=== PATIENT | female | born 1950 | race Caucasian/White ===

== ENCOUNTER 2019-02-12 03:18 | Observation (INO) | payer BC, OTHER ==
--- NOTE | 2019-02-12 04:12 | PDOC ---
Attending Attestation - Resident Resident Name: Khanh Reid - ED Attending Attestation I have performed the following: I have examined & evaluated the patient, The case was reviewed & discussed with the resident, I agree w/resident's findings & plan - HPI HPI: 02/12/19 05:14 Pt woke with afib and palpitations to 150-170. She has never had this in the past. Pt ate a lot and drank al lot of alcohol yesterday from 2PM -9PM with family and friends. She has PMHx of HTN and she is on HCTZ, She has no other complaints. - Physicial Exam PE: 02/12/19 05:16 Heart irregularly irreg. Lungs clear Abd NT ND No flank pain No rash Neurologically intact Pt has no fever; no alcohol on breath. - Medical Decision Making 02/12/19 04:12 Pt with rapid afib; diltiazem and NSS 02/12/19 05:01 Rapid afib resolved in the ER; pt is now in afib but rate controlled. Pt just got an IV dose of 5mg and 1L saline hung. BP is 139/80 Pt has no chest pain 02/12/19 05:20 CBC and Hb/HCT normal 02/12/19 05:21 Her quantitative strategy analyst is Dr. Noble 02/12/19 05:43 Labs normal; alcohol level only 9 Pt has normal CXR 02/12/19 06:55 EKG #2: pt converted to sinus rhythm
[2019-02-12] MEDS ORDERED: dilTIAZem HCL 50 MG/10 ML - 10 ML VIAL IVPUSH ONE ×2 (04:28→04:59)
--- NOTE | 2019-02-12 04:38 | PDOC ---
History of Present Illness - General Chief Complaint: Irregular Heart Beat Stated Complaint: R/O AFIB Time Seen by Provider: 02/12/19 04:08 - History of Present Illness Initial Comments: 02/12/19 04:08 68 yo pmh RBBB (not treated), HTN, esophageal spasms presents to the ED for sudden onset chest palpations tonight. Pt admits to having approx 5 glassess of wine tonight (normally drinks 2). States woken up out of sleep with palpitations 170s HR. Has has had palp prior however in the past has resolved Pt denies hx of afib, not on anticoagulation, denies CP, SOB, abdominal pain, recent illness, recent travel, calf tenderness. Past History - Past Medical History Allergies/Adverse Reactions: Allergies Allergy/AdvReac Type Severity Reaction Status Date / Time No Known Allergies Allergy Verified 02/12/19 03:38 Home Medications: Ambulatory Orders Acetaminophen [Tylenol] 650 mg PO PRN 02/12/19 Celecoxib [Celebrex] 200 mg PO DAILY 02/12/19 Cholecalciferol (Vitamin D3) [Vitamin D3 -] 0 unit PO DAILY 02/12/19 Eszopiclone [Lunesta] 1 mg PO DAILY 02/12/19 Famotidine [Pepcid -] 40 mg PO DAILY 02/12/19 Hydrochlorothiazide 12.5 mg PO DAILY 02/12/19 Omeprazole 20 mg PO DAILY 02/12/19 Rosuvastatin Calcium [Crestor] 20 mg PO HS 02/12/19 Sucralfate [Carafate -] 1 gm PO DAILY 02/12/19 - Psycho Social/Smoking Cessation Hx Smoking History: Never smoked Have you smoked in the past 12 months: No Information on smoking cessation initiated: No Hx Alcohol Use: No Drug/Substance Use Hx: No Review of Systems - Review of Systems Constitutional: No: Chills, Fever HEENTM: No: Blurred Vision, Double Vision Respiratory: No: Shortness of Breath Cardiac (ROS): Yes: Irregular Heart Rate. No: Chest Pain, Edema ABD/GI: No: Constipated, Diarrhea, Nausea, Vomiting : No: Burning, Dysuria, Frequency, Flank Pain Musculoskeletal: No: Back Pain Integumentary: No: Change in Color Neurological: No: Headache, Numbness, Paresthesia, Weakness *Physical Exam - Vital Signs Last Vital Signs Temp Pulse Resp BP Pulse Ox 97.7 F 68 20 131/88 98 02/12/19 04:06 02/12/19 04:06 02/12/19 04:06 02/12/19 04:06 02/12/19 04:06 - Physical Exam General Appearance: Yes: Nourished, Appropriately Dressed. No: Apparent Distress HEENT: positive: EOMI Neck: positive: Supple. negative: Carotid bruit Respiratory/Chest: positive: Lungs Clear, Normal Breath Sounds. negative: Respiratory Distress, Accessory Muscle Use, Crackles, Rales, Rhonchi, Stridor, Wheezing Cardiovascular: positive: Irregularly Irregular. negative: Edema, JVD, Murmur Vascular Pulses: Dorsalis-Pedis (R): 4+, Doralis-Pedis (L): 4+ Gastrointestinal/Abdominal: positive: Flat, Soft. negative: Pulsatile Mass, Protuberent, Distended, Guarding, Rebound, Tenderness Musculoskeletal: negative: CVA Tenderness Extremity: positive: Normal Capillary Refill, Normal Inspection, Normal Range of Motion Integumentary: positive: Normal Color, Dry, Warm Neurologic: positive: bow maker II-XII NML intact, Fully Oriented, Alert, Normal Mood/ Affect, Normal Response, Motor Strength 07/19 ED Treatment Course - LABORATORY CBC & Chemistry Diagram: 02/12/19 04:30 02/12/19 04:30 Medical Decision Making - Medical Decision Making 02/12/19 04:42 68 yo pmh RBBB (not treated), HTN, esophageal spasms presents to the ED for sudden onset chest palpations tonight. Pt admits to having approx 5 glassess of wine tonight (normally drinks 2). States woken up out of sleep with palpitations 170s HR. Has has had palp prior however in the past has resolved Pt denies hx of afib, not on anticoagulation, denies CP, SOB, abdominal pain, recent illness, recent travel, calf tenderness. vitals show elevated HR in the 140s, irr irr, BP stable with systolic in the 130s EKG shows irr irr rhythm, pt in rapid a fib requires rate control. Will give .25 mg/kg of Dilt = 18.5 mg push 02/12/19 05:51 Prior to giving Dilt, pt rate reduced to the 80s, denies palpitations however on the monitor, appears to still be in afib. 5mg dilt given and 1L fluids Repeat ekg done, NSR RBBB, no signs of acute ischemia labs neg for trop CXR ED read no acute findings Will admit pt for new onset afib 02/12/19 06:04 pending admission 02/12/19 07:29 Pt accepted for admission Discharge - Discharge Information Problems reviewed: Yes Clinical Impression/Diagnosis: Atrial fibrillation with RVR - Admission Yes - Follow up/Referral - Patient Discharge Instructions - Post Discharge Activity
[2019-02-12 04:59] LABS: BASO % 0.9 % (0-2.0); EOS % 4.3 % (0-4.5); HEMATOCRIT 39.4 % (32.4-45.2); HEMOGLOBIN 13.5 GM/dL (10.7-15.3); LYMPH % 38.9 % (8-40); MCH 32.3 pg (25.7-33.7); MCHC 34.3 g/dl (32.0-36.0); MEAN PLT VOLUME 8.5 fl (7.5-11.1); MONO % 9.8 % (3.8-10.2); NEUT % 46.1 % (42.8-82.8); PLATELET COUNT 227 K/MM3 (134-434); RBC 4.19 M/mm3 (3.60-5.2); RDW 12.6 % (11.6-15.6); WHITE BLOOD COUNT 6.3 K/mm3 (4.0-10.0)
[2019-02-12] MEDS ORDERED: SODIUM CHLORIDE 1,000 ML IV STA (05:00)
[2019-02-12 05:11] LABS: INR 0.92 (0.83-1.09); PROTHROMBIN TIME (PATIENT) 10.9 SEC (9.7-13.0)
[2019-02-12 05:13] LABS: ACTIVATED PTT 30.9 SECONDS (25.2-36.5)
[2019-02-12 05:21] LABS: ALBUMIN 3.6 g/dl (3.4-5.0); BILIRUBIN,TOTAL 0.2 mg/dL (0.2-1); BLOOD UREA NITROGEN 15.2 mg/dL (7-18); CREATININE 0.8 mg/dL (0.55-1.3); MAGNESIUM 1.7 mg/dL (1.8-2.4); POTASSIUM 4.3 mmol/L (3.5-5.1); TOT PROT 6.7 g/dl (6.4-8.2)
--- NOTE | 2019-02-12 08:17 | HP ---
CHIEF COMPLAINT: Palpitations PCP: Dr Hyde HISTORY OF PRESENT ILLNESS: Pt is a 68 y/o F with a significant past medical history of HTN who presented to [facility] due to palpitations. Pt endorses she woke from sleep around 1:50 am early this morning and felt her heart racing. Pt has an alex on her phone which records heart rate and rhythm. Alex stated her rate was 177 and that she may be in atrial fibrillation. Pt presented to our Emergency Department where an EKG was performed which revealed Atrial Fibrillation wit Rapid Ventricular Response (Rate 136). Pt states she consumed 5 glasses of wine during thanksgi which is a lot for her. Pt denies ever having atrial fibrillation in the past. Denies any cardiac history. Denies headache, shortness of breath, chest pain, nausea/ vomiting, lightheadedness, or LOC. PMH -HTN SocialHx-Denies tobacco use. Social Drinker. Denies illicit drug use. SurgHx -Bladder Mesh, hand and foot orthopedic surgeries NKDA FamHx- Father a-fib, HLD. Mother Alzheimer's ER course was notable for: (1) 5 mg Diltiazem (2) (3) Allergies No Known Allergies Allergy (Verified 02/12/19 03:38) HOME MEDICATIONS: Home Medications Medication Instructions Recorded Acetaminophen [Tylenol] 650 mg PO PRN 02/12/19 Celecoxib [Celebrex] 200 mg PO DAILY 02/12/19 Cholecalciferol (Vitamin D3) 0 unit PO DAILY 02/12/19 [Vitamin D3 -] Eszopiclone [Lunesta] 1 mg PO DAILY 02/12/19 Famotidine [Pepcid -] 40 mg PO DAILY 02/12/19 Hydrochlorothiazide 12.5 mg PO DAILY 02/12/19 Omeprazole 20 mg PO DAILY 02/12/19 Rosuvastatin Calcium [Crestor] 20 mg PO HS 02/12/19 Sucralfate [Carafate -] 1 gm PO DAILY 02/12/19 REVIEW OF SYSTEMS CONSTITUTIONAL: Absent: fever, chills, diaphoresis, generalized weakness, malaise, loss of appetite, weight change HEENT: Absent: rhinorrhea, nasal congestion, throat pain, throat swelling, difficulty swallowing, mouth swelling, ear pain, eye pain, visual changes CARDIOVASCULAR: PRESENT palpitations, irregular heart rate RESPIRATORY: Absent: cough, shortness of breath, dyspnea with exertion, orthopnea, wheezing, stridor, hemoptysis GASTROINTESTINAL: Absent: abdominal pain, abdominal distension, nausea, vomiting, diarrhea, constipation, melena, hematochezia GENITOURINARY: Absent: dysuria, frequency, urgency, hesitancy, hematuria, flank pain, genital pain MUSCULOSKELETAL: Absent: myalgia, arthralgia, joint swelling, back pain, neck pain SKIN: Absent: rash, itching, pallor HEMATOLOGIC/IMMUNOLOGIC: Absent: easy bleeding, easy bruising, lymphadenopathy, frequent infections ENDOCRINE: Absent: unexplained weight gain, unexplained weight loss, heat intolerance, cold intolerance NEUROLOGIC: Absent: headache, focal weakness or paresthesias, dizziness, unsteady gait, seizure, mental status changes, bladder or bowel incontinence PSYCHIATRIC: Absent: anxiety, depression, suicidal or homicidal ideation, hallucinations. PHYSICAL EXAMINATION Vital Signs - 24 hr 02/12/19 02/12/19 03:35 04:06 Temperature 97.9 F 97.7 F Pulse Rate 68 Pulse Rate [ 93 H Right Radial] Respiratory 17 20 Rate Blood Pressure 131/88 Blood Pressure 131/92 [Left Arm] O2 Sat by Pulse 99 98 Oximetry (%) GENERAL: NAD, pleasant HEAD: Normal with no signs of trauma. EYES: EOMI Sclera clear EARS, NOSE, THROAT: MMM NECK: Supple LUNGS: CTA b/l HEART: RRR S1S2 ABDOMEN: Soft NDNT MUSCULOSKELETAL: FROM throughout LOWER EXTREMITIES: No Significant edema NEUROLOGICAL: Cranial nerves II-XII intact. Normal speech. PSYCHIATRIC: Cooperative. Good eye contact. Appropriate mood and affect. SKIN: Warm, no rashes or lesions appreciated Laboratory Results - last 24 hr 02/12/19 02/12/19 02/12/19 04:30 04:30 04:30 WBC 6.3 RBC 4.19 Hgb 13.5 Hct 39.4 MCV 94.0 MCH 32.3 MCHC 34.3 RDW 12.6 Plt Count 227 MPV 8.5 Absolute Neuts (auto) 2.9 Neutrophils % 46.1 Lymphocytes % 38.9 Monocytes % 9.8 Eosinophils % 4.3 Basophils % 0.9 Nucleated RBC % 0 PT with INR 10.90 INR 0.92 PTT (Actin FS) 30.9 Sodium Potassium Chloride Carbon Dioxide Anion Gap BUN Creatinine Est GFR (CKD-EPI)AfAm Est GFR (CKD-EPI)NonAf Random Glucose Calcium Magnesium Total Bilirubin AST ALT Alkaline Phosphatase Creatine Kinase 83 Troponin I < 0.02 Total Protein Albumin Alcohol, Quantitative 02/12/19 04:30 WBC RBC Hgb Hct MCV MCH MCHC RDW Plt Count MPV Absolute Neuts (auto) Neutrophils % Lymphocytes % Monocytes % Eosinophils % Basophils % Nucleated RBC % PT with INR INR PTT (Actin FS) Sodium 140 Potassium 4.3 Chloride 107 Carbon Dioxide 26 Anion Gap 7 L BUN 15.2 Creatinine 0.8 Est GFR (CKD-EPI)AfAm 88.42 Est GFR (CKD-EPI)NonAf 76.29 Random Glucose 94 Calcium 9.0 Magnesium 1.7 L Total Bilirubin 0.2 AST 52 H ALT 35 Alkaline Phosphatase 102 Creatine Kinase Troponin I Total Protein 6.7 Albumin 3.6 Alcohol, Quantitative 9.2 H ASSESSMENT/PLAN: Pt is a 68 y/o F with a significant past medical history of HTN who presented to [facility] due to palpitations. #Atrial Fibrillation with Rapid Ventricular Response-1st episode - HR 177 with Atrial fibrillaton at home. EKG at [facility]---> A-Fib w/ RVR rate 136 incomplete RBBB. QTc 436. -HR came down to 80s prior to administration of Diltiazem 5 mg however drug was given anyway as pt still was in A-Fib on monitor. -Cardiology Consult -Echocardiogram to assess for any valvular pathology or wall motion abnormality -Tele monitoring -TSH WNL #HTN -resume home medications #FEN No standing fluids Monitor Electrolytes Sodium Controlled Diet #DVT ppx: Lovenox 1mg/kg #Dispo: Tele-obs Visit type - Emergency Visit Emergency Visit: Yes ED Registration Date: 02/12/19 Care time: The patient presented to the Emergency Department on the above date and was hospitalized for further evaluation of their emergent condition. - New Patient This patient is new to me today: Yes Date on this admission: 02/12/19 - Critical Care Critical Care patient: No ATTENDING PHYSICIAN STATEMENT I saw and evaluated the patient. I reviewed the resident's note and discussed the case with the resident. I agree with the resident's findings and plan as documented. SUBJECTIVE: OBJECTIVE: ASSESSMENT AND PLAN:
[2019-02-12] MEDS ORDERED: ENOXAPARIN NA (PORCINE) 80 MG/0.8 ML DISP.SYRIN SQ ONE ×2 (08:45→08:57)
--- NOTE | 2019-02-12 09:08 | CON.CARD ---
Consult Consult Specialty:: Cardiology Referred by:: Dr. Tsai Reason for Consultation:: New onset AF - History of Present Illness Chief Complaint: Palpitations History of Present Illness: 68F with OA, HLD awoke with palpitations and FitBit showing possible AF. Came to ER and EKG confirmed AF w/ RVR, now back in NSR after Dilt. Denies SOB, did have chest tightness associated with the AF, now resolved. Denies exertional CP, SOB, palps. Admits to "overindulging" yesterday (Thanksgiving) including more ETOH than usual. - History Source History Provided By: Patient Limitations to Obtaining History: No Limitations - Past Medical History 3D SPECIALIST: No: Alzheimer's, CVA, Dementia, Migraine, Multiple Sclerosis, Peripheral Neuropathy, Parkinson's, Seizure, Syncope, TIA, Vertigo, Other Cardio/Vascular: Yes: HTN Pulmonary: No: Asthma, Bronchitis, Cancer, COPD, O2 Dependent, Pneumonia, Previously Intubated, Pulmonary Embolus, Pulmonary Fibrosis, Sleep Apnea, Other Gastrointestinal: Yes: GERD Hepatobiliary: No: Cirrhosis, Cholelithiasis, Cholecystitis, Choledocholithiasis , Hepatitis A, Hepatitis B, Hepatitis C, Other Renal/: No: Renal Failure, Renal Inusuff, BPH, Cancer, Hematuria, Hemodialysis , Neurogenic Bladder, Renal Calculi, UTI, Other Heme/Onc: No: Anemia, B12 Deficiency, Bleeding Disorder, Cancer, Current Chemotherapy, Current Radiation Therapy, Hemochromatosis, Hypercoaguable State, Myeloproliferative Synd, Sickle Cell Disease, Sickle Cell Trait, Thrombocytopenia, Other Infectious Disease: No: AIDS, C-Diff, Herpes Zoster, HIV, MRSA, STD's, Tuberculosis, VREF, Other Psych: No: Addictions, Anxiety, Bipolar, Depression, Panic, Psychosis, Schizophrenia, Other Musculoskeletal: No: Bursitis, Chronic low back pain, Hemiparesis, Hemiplegia, Osteoarthritis, Paraplegia, Other - Past Surgical History Additional Surgical History: multiple ortho surgeries - Alcohol/Substance Use Hx Alcohol Use: No - Smoking History Smoking history: Never smoked Have you smoked in the past 12 months: No - Social History Occupation: Does [employer] History of Recent Travel: No Home Medications - Allergies Allergies/Adverse Reactions: Allergies Allergy/AdvReac Type Severity Reaction Status Date / Time No Known Allergies Allergy Verified 02/12/19 03:38 - Home Medications Home Medications: Ambulatory Orders Acetaminophen [Tylenol] 650 mg PO PRN 02/12/19 Celecoxib [Celebrex] 200 mg PO DAILY 02/12/19 Cholecalciferol (Vitamin D3) [Vitamin D3 -] 0 unit PO DAILY 02/12/19 Eszopiclone [Lunesta] 1 mg PO DAILY 02/12/19 Famotidine [Pepcid -] 40 mg PO DAILY 02/12/19 Hydrochlorothiazide 12.5 mg PO DAILY 02/12/19 Omeprazole 20 mg PO DAILY 02/12/19 Rosuvastatin Calcium [Crestor] 20 mg PO HS 02/12/19 Sucralfate [Carafate -] 1 gm PO DAILY 02/12/19 Family Medical History Family History: Unremarkable (brother does have AF) Review of Systems Findings/Remarks: see HPI - Review of Systems Constitutional: reports: No Symptoms Eyes: reports: No Symptoms HENT: reports: No Symptoms Neck: reports: No Symptoms Cardiovascular: reports: Palpitations Respiratory: reports: No Symptoms Gastrointestinal: reports: No Symptoms Genitourinary: reports: No Symptoms Breasts: reports: No Symptoms Reported Musculoskeletal: reports: No Symptoms Integumentary: reports: No Symptoms Neurological: reports: No Symptoms Endocrine: reports: No Symptoms Psychiatric: reports: No Symptoms - Risk Factors Known Risk Factors: Yes: Hypercholesterolemia, Hypertension Vital Signs: Vital Signs Temperature 98.0 F 02/12/19 08:26 Pulse Rate 87 02/12/19 08:26 Respiratory Rate 19 02/12/19 08:26 Blood Pressure 140/90 02/12/19 08:26 O2 Sat by Pulse Oximetry (%) 99 02/12/19 08:42 Constitutional: Yes: No Distress, Calm Eyes: Yes: Conjunctiva Clear Respiratory: Yes: CTA Bilaterally Gastrointestinal: Yes: Soft JVD: No Carotid Bruit: No PMI: Non-Displaced Heart Sounds: Yes: S1, S2 (rrr, no m/r/g) Edema: No Peripheral Pulses WNL: Yes - Other Data Labs, Other Data: CBC, BMP 02/12/19 04:30 02/12/19 04:30 INR, PTT INR 0.92 (0.83-1.09) 02/12/19 04:30 Troponin, BNP 02/12/19 04:30 Troponin I < 0.02 Troponin, BNP 02/12/19 04:30 Troponin I < 0.02 Echo: Pending Imaging - Results EKG: Image Reviewed (AF 136bpm, RBBB) Assessment/Plan IMP: AF w/ RVR, new onset now in NSR ([id number] score at least 2) (TSH WNL) HTN HLD REC: 1. Start Toprol XL 25mg daily 2. Eliquis 5mg PO BID 3. Echo 4. 2nd set cardiac enzymes. 5. If echo benign and remains NSR , ok d/c home tomorrow AM w/ close outpt f/u Dr. Noble. If this was an isolated episode, then long-term AC can be revisited in future after serial outpatient monitoring.
[2019-02-12] MEDS: metoPROLOL SUCCINATE 25 MG TAB.SR.24H (FP) PO SCH (11:41)
[2019-02-12] MEDS ORDERED: MAGNESIUM SULF 50% (8.12 MEQ/2 ML-1 GM VIAL) IVPB ONE (12:25)
--- NOTE | 2019-02-12 12:25 | PN ---
Teaching Attending Note Name of Resident: Fan Vann ATTENDING PHYSICIAN STATEMENT I saw and evaluated the patient. I reviewed the resident's note and discussed the case with the resident. I agree with the resident's findings and plan as documented. SUBJECTIVE: No further palpitations. No chest pain/shortness of breath/cough/ sputum/hemoptysis. OBJECTIVE: Afebrile, Hemodynamically Stable. Last Vital Signs Temp Pulse Resp BP Pulse Ox 98.0 F 87 19 140/90 99 02/12/19 08:26 02/12/19 08:26 02/12/19 08:26 02/12/19 08:26 02/12/19 08:42 HEENT - Atraumatic, Normocephalic. Heart - S1, S2, RRR. Lungs - clear to auscultation. Abdomen - soft, non-tender. Bo[place]el Sounds normal. Extremities - No edema, no calf tenderness. Neuro - AAO x 3. Tone/Power normal all 4 extremities. Laboratory Results - last 24 hr 02/12/19 02/12/19 02/12/19 04:30 04:30 04:30 WBC 6.3 RBC 4.19 Hgb 13.5 Hct 39.4 MCV 94.0 MCH 32.3 MCHC 34.3 RDW 12.6 Plt Count 227 MPV 8.5 Absolute Neuts (auto) 2.9 Neutrophils % 46.1 Lymphocytes % 38.9 Monocytes % 9.8 Eosinophils % 4.3 Basophils % 0.9 Nucleated RBC % 0 PT with INR 10.90 INR 0.92 PTT (Actin FS) 30.9 Sodium Potassium Chloride Carbon Dioxide Anion Gap BUN Creatinine Est GFR (CKD-EPI)AfAm Est GFR (CKD-EPI)NonAf Random Glucose Calcium Magnesium Total Bilirubin AST ALT Alkaline Phosphatase Creatine Kinase 83 Troponin I < 0.02 Total Protein Albumin TSH Alcohol, Quantitative 02/12/19 02/12/19 04:30 07:37 WBC RBC Hgb Hct MCV MCH MCHC RDW Plt Count MPV Absolute Neuts (auto) Neutrophils % Lymphocytes % Monocytes % Eosinophils % Basophils % Nucleated RBC % PT with INR INR PTT (Actin FS) Sodium 140 Potassium 4.3 Chloride 107 Carbon Dioxide 26 Anion Gap 7 L BUN 15.2 Creatinine 0.8 Est GFR (CKD-EPI)AfAm 88.42 Est GFR (CKD-EPI)NonAf 76.29 Random Glucose 94 Calcium 9.0 Magnesium 1.7 L Total Bilirubin 0.2 AST 52 H ALT 35 Alkaline Phosphatase 102 Creatine Kinase Troponin I Total Protein 6.7 Albumin 3.6 TSH 2.41 Alcohol, Quantitative 9.2 H Current Medications Generic Name Dose Route Start Last Admin Trade Name Lavellq PRN Reason Stop Dose Admin Apixaban 5 mg 02/12/19 22:00 Eliquis - PO BID [facility] Metoprolol Succinate 25 mg 02/12/19 10:00 02/12/19 11:41 Toprol Xl - PO 25 mg DAILY [facility] Administration Home Medications Medication Instructions Recorded Acetaminophen [Tylenol] 650 mg PO PRN 02/12/19 Celecoxib [Celebrex] 200 mg PO DAILY 02/12/19 Cholecalciferol (Vitamin D3) 0 unit PO DAILY 02/12/19 [Vitamin D3 -] Eszopiclone [Lunesta] 1 mg PO DAILY 02/12/19 Famotidine [Pepcid -] 40 mg PO DAILY 02/12/19 Hydrochlorothiazide 12.5 mg PO DAILY 02/12/19 Omeprazole 20 mg PO DAILY 02/12/19 Rosuvastatin Calcium [Crestor] 20 mg PO HS 02/12/19 Sucralfate [Carafate -] 1 gm PO DAILY 02/12/19 ASSESSMENT AND PLAN: 68 year old female with HTN, HLD, presents with palpitations and abnormal HR/ Rhythm on fitbit. She reported palpitations and some associated chest tightness. ECG in ED confirmed Atrial Fibrillation, HR in 130s. 1. New onset Atrial Fibrillation Reverted to SR s/p Diltiazem. Evaluated by Cardiology and started on Toprol XL, Eliquis. Echo pending. Trend Troponins x 2. TSH wnl. Telemonitoring overnight. 2. HTN - Continue HCTZ. 3. HLD - resume Crestor. 4, GERD - Continue H2 jessica and Sucralfate. DVT Px - on Eliquis
[2019-02-12] MEDS ORDERED: MAGNESIUM SULF 50% (8.12 MEQ/2 ML-1 GM VIAL) ONE (12:33)
--- NOTE | 2019-02-12 13:33 | ECHO ---
Name: GRUPO ALEJO Exam:Adult Echocardiogram Study Date: 02/12/2019 10:40 AM Age: 68 yrs Height: 64 in Weight: 165 lb BSA: 1.8 m2 MMode/2D Measurements & Calculations IVSd: 0.95 cm Ao root diam: 3.3 cm LVIDd: 4.8 cm LA dimension: 3.9 cm LVIDs: 2.8 cm ACS: 1.9 cm LVPWd: 0.97 cm IVSs: 1.2 cm LVPWs: 1.3 cm EDV(Teich): 105.2 ml ESV(Teich): 28.4 ml Doppler Measurements & Calculations MV E max eric: 65.8 cm/sec Ao V2 max: 128.1 cm/sec MV A max eric: 77.2 cm/sec Ao max P.6 mmHg MV E/A: 0.85 Ao V2 mean: 83.6 cm/sec Ao mean P.2 mmHg Ao V2 VTI: 26.8 cm AI P1/2t: 382.0 msec AI max eric: 430.0 cm/sec TR max eric: 232.7 cm/sec AI max P.0 mmHg TR max P.7 mmHg RVSP(TR): 31.7 mmHg AI dec slope: 329.7 cm/sec2 PI end-d eric: 85.5 cm/sec Med Peak E' Eric: 6.5 cm/sec Med E/e': 10.1 Lat Peak E' Eric: 11.0 cm/sec Lat E/e': 6.0 RAP systole: 10.0 mmHg Left Ventricle Left ventricular systolic function is normal. Ejection Fraction = 60-65%. The transmitral spectral Do ppler flow pattern is suggestive of impaired LV relaxation. The left ventricular wall motion is normal. Right Ventricle The right ventricle is normal in size and function. Atria The left atrium is mildly dilated. Right atrial size is normal. Mitral Valve The mitral valve is normal in structure and function. There is no mitral valve stenosis. There is tra ce to mild mitral regurgitation. Tricuspid Valve The tricuspid valve is normal in structure and function. There is mild tricuspid regurgitation. Right ventricular systolic pressure is normal. Aortic Valve The aortic valve is trileaflet. No hemodynamically significant valvular aortic stenosis. Mild aortic regurgitation. Pulmonic Valve The pulmonic valve is not well seen, but is grossly normal. There is no pulmonic valvular stenosis. T race pulmonic valvular regurgitation. Great Vessels The aortic root is normal size. Pericardium/Pleura There is no pericardial effusion. Interpretation Summary Left ventricular systolic function is normal. Ejection Fraction = 60-65%. The transmitral spectral Doppler flow pattern is suggestive of impaired LV relaxation. The right ventricle is normal in size and function. The left atrium is mildly dilated. There is trace to mild mitral regurgitation. There is mild tricuspid regurgitation. Right ventricular systolic pressure is normal. Mild aortic regurgitation. The aortic root is normal size. There is no pericardial effusion. MD Chase *David 02/12/2019 01:33 PM
--- NOTE | 2019-02-12 14:12 | EKG ---
Test Reason : Blood Pressure : / mmHG Vent. Rate : 136 BPM Atrial Rate : 120 BPM P-R Int : 000 ms QRS Dur : 104 ms QT Int : 312 ms P-R-T Axes : 000 -04 -23 degrees QTc Int : 469 ms ATRIAL FIBRILLATION WITH RAPID VENTRICULAR RESPONSE WITH PREMATURE VENTRICULAR OR ABERRANTLY CONDUCTED COMPLEXES INCOMPLETE RIGHT BUNDLE BRANCH BLOCK NONSPECIFIC T WAVE ABNORMALITY ABNORMAL ECG WHEN COMPARED WITH ECG OF 13-NOV-2009 13:09, ATRIAL FIBRILLATION HAS REPLACED SINUS RHYTHM VENT. RATE HAS INCREASED BY 62 BPM Confirmed by JUAN DIEGO SHELTON MD ([id number]) on 02/12/2019 2:12:04 PM Referred By: Confirmed By:JUAN DIEGO SHELTON MD
[2019-02-12] MEDS ORDERED: ACETAMINOPHEN 325 MG TABLET (FP) PO PRN (20:01)
[2019-02-12] MEDS: APIXABAN 5 MG TABLET PO SCH (21:54)
[2019-02-12] MEDS ORDERED: ZOLPIDEM TARTRATE 5 MG TABLET PO PRN ×2 (22:00)
[2019-02-12 22:44] VITALS: BMI 28.9
[2019-02-13 07:59] LABS: BASO % 0.8 % (0-2.0); EOS % 4.4 % (0-4.5); HEMATOCRIT 36.4 % (32.4-45.2); HEMOGLOBIN 12.5 GM/dL (10.7-15.3); LYMPH % 46.3 % (8-40); MCH 32.2 pg (25.7-33.7); MCHC 34.3 g/dl (32.0-36.0); MEAN CELL VOLUME 93.8 fl (80-96); MEAN PLT VOLUME 8.4 fl (7.5-11.1); MONO % 10.7 % (3.8-10.2); NEUT % 37.8 % (42.8-82.8); PLATELET COUNT 203 K/MM3 (134-434); RBC 3.88 M/mm3 (3.60-5.2); RDW 12.7 % (11.6-15.6); WHITE BLOOD COUNT 4.8 K/mm3 (4.0-10.0)
[2019-02-13 08:03] LABS: INR 1.12 (0.83-1.09); PROTHROMBIN TIME (PATIENT) 13.2 SEC (9.7-13.0)
[2019-02-13 08:06] LABS: ACTIVATED PTT 35.2 SECONDS (25.2-36.5); ALBUMIN 3.1 g/dl (3.4-5.0); BILIRUBIN,TOTAL 0.5 mg/dL (0.2-1); BLOOD UREA NITROGEN 12.3 mg/dL (7-18); CREATININE 0.7 mg/dL (0.55-1.3); MAGNESIUM 2.1 mg/dL (1.8-2.4); PHOSPHOROUS 3.8 mg/dL (2.5-4.9); POTASSIUM 4.3 mmol/L (3.5-5.1); TOT PROT 5.6 g/dl (6.4-8.2)
--- NOTE | 2019-02-13 08:14 | PN ---
Progress Note, Physician Chief Complaint: palps History of Present Illness: no more palps no cp, sob, dizzy - Current Medication List Current Medications: Active Medications Acetaminophen (Tylenol -) 650 mg PO Q6H PRN PRN Reason: HEADACHE Apixaban (Eliquis -) 5 mg PO BID [facility] Last Admin: 02/12/19 21:54 Dose: 5 mg Metoprolol Succinate (Toprol Xl -) 25 mg PO DAILY [facility] Last Admin: 02/12/19 11:41 Dose: 25 mg Zolpidem Tartrate (Ambien -) 5 mg PO HS PRN PRN Reason: INSOMNIA Stop: 02/13/19 21:59 Last Admin: 02/12/19 21:54 Dose: 5 mg - Objective Vital Signs: Vital Signs Temperature 99 F 02/13/19 06:00 Pulse Rate 68 02/13/19 06:00 Respiratory Rate 18 02/13/19 06:00 Blood Pressure 140/78 02/13/19 06:00 O2 Sat by Pulse Oximetry (%) 99 02/12/19 23:41 Constitutional: Yes: Well Nourished, No Distress, Calm Cardiovascular: Yes: Pulse Irregular, S1, S2. No: Gallop, Murmur Respiratory: Yes: Regular, CTA Bilaterally. No: Accessory Muscle Use, Rales, Wheezes Extremities: No: Cold Edema: No Neurological: Yes: Alert, Oriented Psychiatric: No: Agitated Labs: CBC, BMP 02/13/19 05:58 02/13/19 05:58 INR, PTT INR 1.12 (0.83-1.09) H 02/13/19 05:58 Assessment/Plan Echo 02/02: nl LVEF, nl RV, mild LAE, mild AI, no pHTN tele: NSR, artifact IMP: AF w/ RVR, new onset--converted to NSR ([id number] = 3). ? mental stress induced (coordinating 's recent intensive outpt w/u for anemia and new colon Ca diagnosis), ? etoh induced HTN HLD REC: 1. incr metoprolol 25 bid 2. Eliquis 5mg PO BID 3. Echo benign. trop neg x 2. no s/sx of myocardial ischemia--no further w/u indicated 4. cont home HCTZ, bp stable here routine outpt f/u with me planned--OK FOR DC FROM CV POINT OF VIEW
[2019-02-13] MEDS: APIXABAN 5 MG TABLET PO SCH (09:37)
[2019-02-13] MEDS: metoPROLOL SUCCINATE 25 MG TAB.SR.24H (FP) PO SCH (09:37)
[2019-02-13 10:17] VITALS: BP 122/73; PULSE 83; TEMP 98.5
--- NOTE | 2019-02-13 12:06 | DS ---
Physical Exam: SUBJECTIVE: No further palpitations. No chest pain/shortness of breath/cough/ sputum/hemoptysis. OBJECTIVE: Afebrile, Hemodynamically Stable. Last Vital Signs Temp Pulse Resp BP Pulse Ox 98.5 F 83 18 122/73 99 02/13/19 10:00 02/13/19 10:00 02/13/19 10:00 02/13/19 10:00 02/12/19 23:41 HEENT - Atraumatic, Normocephalic. Heart - S1, S2, RRR. Lungs - clear to auscultation. Abdomen - soft, non-tender. [place] Sounds normal. Extremities - No edema, no calf tenderness. Neuro - AAO x 3. Tone/Power normal all 4 extremities. Laboratory Tests 02/12/19 02/12/19 02/12/19 04:30 04:30 04:30 WBC 6.3 RBC 4.19 Hgb 13.5 Hct 39.4 MCV 94.0 MCH 32.3 MCHC 34.3 RDW 12.6 Plt Count 227 MPV 8.5 Absolute Neuts (auto) 2.9 Neutrophils % 46.1 Lymphocytes % 38.9 Monocytes % 9.8 Eosinophils % 4.3 Basophils % 0.9 Nucleated RBC % 0 PT with INR 10.90 INR 0.92 PTT (Actin FS) 30.9 Sodium Potassium Chloride Carbon Dioxide Anion Gap BUN Creatinine Est GFR (CKD-EPI)AfAm Est GFR (CKD-EPI)NonAf Random Glucose Calcium Phosphorus Magnesium Total Bilirubin AST ALT Alkaline Phosphatase Creatine Kinase 83 Troponin I < 0.02 Total Protein Albumin TSH Alcohol, Quantitative 02/12/19 02/12/19 02/12/19 04:30 07:37 12:44 WBC RBC Hgb Hct MCV MCH MCHC RDW Plt Count MPV Absolute Neuts (auto) Neutrophils % Lymphocytes % Monocytes % Eosinophils % Basophils % Nucleated RBC % PT with INR INR PTT (Actin FS) Sodium 140 Potassium 4.3 Chloride 107 Carbon Dioxide 26 Anion Gap 7 L BUN 15.2 Creatinine 0.8 Est GFR (CKD-EPI)AfAm 88.42 Est GFR (CKD-EPI)NonAf 76.29 Random Glucose 94 Calcium 9.0 Phosphorus Magnesium 1.7 L Total Bilirubin 0.2 AST 52 H ALT 35 Alkaline Phosphatase 102 Creatine Kinase Troponin I < 0.02 Total Protein 6.7 Albumin 3.6 TSH 2.41 Alcohol, Quantitative 9.2 H 02/13/19 02/13/19 02/13/19 05:58 05:58 05:58 WBC 4.8 RBC 3.88 Hgb 12.5 Hct 36.4 MCV 93.8 MCH 32.2 MCHC 34.3 RDW 12.7 Plt Count 203 MPV 8.4 Absolute Neuts (auto) 1.8 Neutrophils % 37.8 L Lymphocytes % 46.3 H Monocytes % 10.7 H Eosinophils % 4.4 Basophils % 0.8 Nucleated RBC % 0 PT with INR 13.20 H INR 1.12 H PTT (Actin FS) 35.2 Sodium 142 Potassium 4.3 Chloride 108 H Carbon Dioxide 28 Anion Gap 6 L BUN 12.3 Creatinine 0.7 Est GFR (CKD-EPI)AfAm 103.91 Est GFR (CKD-EPI)NonAf 89.65 Random Glucose 89 Calcium 9.0 Phosphorus 3.8 Magnesium 2.1 Total Bilirubin 0.5 AST 26 ALT 27 Alkaline Phosphatase 78 Creatine Kinase Troponin I Total Protein 5.6 L Albumin 3.1 L TSH Alcohol, Quantitative Discharge Medications Medication Instructions Recorded Acetaminophen [Tylenol] 650 mg PO PRN 02/12/19 Celecoxib [Celebrex] 200 mg PO DAILY 02/12/19 Cholecalciferol (Vitamin D3) 0 unit PO DAILY 02/12/19 [Vitamin D -] Eszopiclone [Lunesta] 1 mg PO DAILY 02/12/19 Famotidine [Pepcid -] 40 mg PO DAILY 02/12/19 Hydrochlorothiazide 12.5 mg PO DAILY 02/12/19 Omeprazole 20 mg PO DAILY 02/12/19 Rosuvastatin Calcium [Crestor] 20 mg PO HS 02/12/19 Sucralfate [Carafate -] 1 gm PO DAILY 02/12/19 Apixaban [Eliquis -] 5 mg PO BID 30 Days #60 tablet 02/13/19 Metoprolol Succinate [Toprol XL -] 25 mg PO BID 30 Days #60 tab.sr.24h 02/13/19 Date of Admission:02/12/19 Date of Discharge: 02/13/19 Minutes to complete discharge: 35 Discharge Summary Problems reviewed: Yes Reason For Visit: ATRIAL FIBRILLATION WITH RAPID VENTRICULAR RESPONS Current Active Problems Atrial fibrillation with RVR (Acute) Hospital Course: 68 year old female with HTN, HLD, presents with palpitations and abnormal HR/ Rhythm on fitbit. She reported palpitations and some associated chest tightness. ECG in ED confirmed Atrial Fibrillation, HR in 130s. She reverted to SR after being given IV cardizem in ED and has remained in sinus. Echo showed impaired LV relaxation with EF 60%. She was seen by Cardioloy and started on Toprol XL and Eliquis for anticoagulation. She will follow with Dr. Noble as an out-patient. 1. New onset Atrial Fibrillation Reverted to SR s/p Diltiazem. Evaluated by Cardiology and started on Toprol XL, Eliquis. Echo normal EF, 60%, impaired LV relaxation. Troponins x 2 negative. TSH wnl. Telemonitoring overnight - no events. Medically cleared for discharge home by Cardiology 2. HTN - Continue HCTZ. 3. HLD - resume Crestor. 4, GERD - Continue H2 jessica and Sucralfate. Medically optimized for discharge Condition: Good - Instructions Diet, Activity, Other Instructions: You were admitted with an irregular heart rhythm, ATRIAL FIBRILLATION, now resolved. You were seen by Cardiology and started on two new medications - Metopolol and Eliquis. You had an Echocardiogram performed which showed normal LV ejection fraction with impaired relaxation. You were observed for 24 hours on telemetry with no adverse events. You will continue to follow with cardiology on discharge. Referrals: Alee Puckett MD [Primary Care Provider] - Maurilio Noble MD [Staff Physician] - Disposition: HOME - Home Medications Comprehensive Discharge Medication List: Ambulatory Orders Acetaminophen [Tylenol] 650 mg PO PRN 02/12/19 Celecoxib [Celebrex] 200 mg PO DAILY 02/12/19 Cholecalciferol (Vitamin D3) [Vitamin D -] 0 unit PO DAILY 02/12/19 Eszopiclone [Lunesta] 1 mg PO DAILY 02/12/19 Famotidine [Pepcid -] 40 mg PO DAILY 02/12/19 Hydrochlorothiazide 12.5 mg PO DAILY 02/12/19 Omeprazole 20 mg PO DAILY 02/12/19 Rosuvastatin Calcium [Crestor] 20 mg PO HS 02/12/19 Sucralfate [Carafate -] 1 gm PO DAILY 02/12/19 Apixaban [Eliquis -] 5 mg PO BID 30 Days #60 tablet 02/13/19 Metoprolol Succinate [Toprol XL -] 25 mg PO BID 30 Days #60 tab.sr.24h 02/13/19 This patient is new to me today: No Emergency Visit: Yes ED Registration Date: 02/12/19 Care time: The patient presented to the Emergency Department on the above date and was hospitalized for further evaluation of their emergent condition. Critical Care patient: No - Discharge Referral Referred to [facility] No
[2019-02-13] MEDS ORDERED: metoPROLOL SUCCINATE 25 MG TAB.SR.24H (FP) PO SCH (22:00)
[2019-02-14] MEDS ORDERED: HYDROCHLOROTHIAZIDE 12.5 MG CAPSULE (FP) PO SCH (10:00)
--- NOTE | 2019-02-15 11:56 | EKG ---
Test Reason : Blood Pressure : / mmHG Vent. Rate : 079 BPM Atrial Rate : 079 BPM P-R Int : 184 ms QRS Dur : 110 ms QT Int : 396 ms P-R-T Axes : 014 -13 -07 degrees QTc Int : 454 ms NORMAL SINUS RHYTHM LOW VOLTAGE QRS INCOMPLETE RIGHT BUNDLE BRANCH BLOCK BORDERLINE ECG WHEN COMPARED WITH ECG OF 12-FEB-2019 03:40, SINUS RHYTHM HAS REPLACED ATRIAL FIBRILLATION VENT. RATE HAS DECREASED BY 57 BPM T WAVE VARIATION Confirmed by XU SERNA MD ([id number]) on 02/15/2019 11:56:23 AM Referred By: Confirmed By:XU SERNA MD
== END 2019-02-13 13:12 | disposition home or self-care (01) ==
LOC: JER 03:18 → JERBED 06:57 → J4W 21:34
PROC: 3E0337Z Introduction of Electrolytic and Water Balance Substance into Peripheral Vein, Percutaneous Approach (ICD-10-PCS; principal; 2019-02-12)
PROC: 3E033GC Introduction of Other Therapeutic Substance into Peripheral Vein, Percutaneous Approach (ICD-10-PCS; 2019-02-12)
PROC: 3E033GC Introduction of Other Therapeutic Substance into Peripheral Vein, Percutaneous Approach (ICD-10-PCS; 2019-02-12)
PROC: 3E023GC Introduction of Other Therapeutic Substance into Muscle, Percutaneous Approach (ICD-10-PCS; 2019-02-12)
DX: I48.20 Chronic atrial fibrillation, unspecified (principal); I10 Essential (primary) hypertension; E78.5 Hyperlipidemia, unspecified; E78.00 Pure hypercholesterolemia, unspecified; K21.9 Gastro-esophageal reflux disease without esophagitis; K22.4 Dyskinesia of esophagus; I45.10 Unspecified right bundle-branch block; M19.90 Unspecified osteoarthritis, unspecified site; Z88.5 Allergy status to narcotic agent
CPT/HCPCS: 36415; 71045-TC-FY; 80053; 80307; 82550; 83735; 84100; 84443; 84484; 85025; 85610; 85730; 93005; 93010; 93306-TC; 99285-25; G0378; J7030

== ENCOUNTER 2023-04-05 17:23 | Emergency (ER) | payer BC, OTHER ==
[2023-04-05] MEDS ORDERED: ALBUTEROL SO4 2.5/IPRATROPIUM 0.5 INH SOL 3 ML VIAL.NEB. NEB ONE ×2 (17:49→17:52)
[2023-04-05] MEDS ORDERED: DEXAMETHASONE 4 MG TABLET (FP) PO ONE (17:50)
[2023-04-05] MEDS ORDERED: DEXAMETHASONE 4 MG TABLET (FP) ONE (17:52)
[2023-04-05 18:03] VITALS: BP 154/85; PULSE 75; RESP 18; TEMP 98.5; BMI 28.8
== END 2023-04-05 19:04 | disposition home or self-care (01) ==
LOC: FER 17:23
PROC: 3E0F7GC Introduction of Other Therapeutic Substance into Respiratory Tract, Via Natural or Artificial Opening (ICD-10-PCS; principal; 2023-04-05)
DX: R50.9 Fever, unspecified (principal); B34.9 Viral infection, unspecified; Z20.822 Contact with and (suspected) exposure to COVID-19
CPT/HCPCS: 0241U-QW; 71046-TC-FY; 99284-25